=== PATIENT | female | born 1980 | race American Indian/Alaskan Native ===

== ENCOUNTER 2016-12-21 13:44 | Emergency (ER) | payer BC ==
[2016-12-21 14:53] LABS: BASO # 0.1 K/uL (0.0-0.2); BASO % 2.1 % (0.0-2.0); EOS # 0.1 K/uL (0.0-0.7); EOS % 1.9 % (0.0-4.0); HEMATOCRIT 35.9 % (34.0-47.0); LYMPH # 1.6 K/uL (1.0-4.3); LYMPH % 41.7 % (20.0-40.0); MEAN CELL VOLUME 86.2 fL (81.0-99.0); MEAN CORPUSCULAR HEMOGLOBIN 28.1 pg (27.0-31.0); MEAN CORPUSCULAR HGB CONC 32.6 g/dL (33.0-37.0); MONO # 0.4 K/uL (0.0-0.8); MONO % 10.1 % (0.0-10.0); NRBC % 0.1 % (0.0-2.0); RED CELL DISTRIBUTION WIDTH 13.2 % (11.5-14.5); WHITE BLOOD COUNT 3.8 K/uL (4.8-10.8)
[2016-12-21 15:02] LABS: CHLORIDE 98 mmol/L (98-107); SODIUM 137 mmol/L (132-148)
[2016-12-21 15:03] LABS: POTASSIUM 3.7 mmol/L (3.6-5.2)
[2016-12-21 15:05] LABS: ALB/GLOB RATIO 1.8 (1.0-2.1); ALKALINE PHOSPHATASE 56 U/L (38-126); ALT/SGPT 23 U/L (9-52); AST/SGOT 23 U/L (14-36); BILIRUBIN,TOTAL 0.6 mg/dL (0.2-1.3); BLOOD UREA NITROGEN 11 mg/dL (7-17); CARBON DIOXIDE 25 mmol/L (22-30); GFR AFRICAN-AMERICAN > 60; GLUCOSE,RANDOM 111 mg/dL (65-105); TOTAL PROTEIN 8.7 g/dL (6.3-8.3)
[2016-12-21 15:06] LABS: CALCIUM 9.2 mg/dl (8.6-10.4)
--- NOTE | 2016-12-21 16:00 | US ---
HISTORY: , bleeding. Beta HCG results: Pending COMPARISON: None available. TECHNIQUE: Transvaginal only. Real -time technique with 2D, duplex and color Doppler FINDINGS: UTERUS: Measures 5.1 x 9.1 cm. Normal in size and appearance. Location of fibroid(s) and size: Submucosal to the left of the midline adjacent to the endometrial echo complex 1.1 x 1.2 cm ENDOMETRIUM: Measures 13.1 mm in diameter. Thickened endometrium without focal abnormality. No evidence of gestational sac or other pathologic process. CERVIX: No cervical abnormality identified. RIGHT OVARY: Measures 1.6 x 2.6 cm. No solid mass. Normal flow. LEFT OVARY: Measures 1.6 x 3.2 cm. No solid mass. Normal flow. FREE FLUID: No significant free fluid noted. OTHER FINDINGS: None. IMPRESSION: No visible intrauterine gestation. Unremarkable adnexa. Endometrial hypertrophy. Incidental finding(s): Small submucosal uterine fibroid.
--- NOTE | 2016-12-21 16:10 | C.PDOC ---
Time Seen by Provider: 12/21/16 13:51 Chief Complaint (Nursing): Female Genitourinary Past Medical History Vital Signs: Last Vital Signs Temp 99.4 F 12/21/16 13:58 Pulse 86 12/21/16 13:58 Resp 20 12/21/16 13:58 BP 113/79 12/21/16 13:58 Pulse Ox 100 12/21/16 13:58 - Social History Hx Alcohol Use: No Hx Substance Use: No - Immunization History Hx Tetanus Toxoid Vaccination: No Hx Influenza Vaccination: Yes Hx Pneumococcal Vaccination: Yes ED Course And Treatment - Laboratory Results Result Diagrams: 12/21/16 14:46 12/21/16 14:46 O2 Sat by Pulse Oximetry: 100 Disposition - Disposition Disposition: HOME/ ROUTINE Disposition Time: 16:09 Condition: STABLE Additional Instructions: Your Beta HCG was 850 today. No was seen on ultrasound. Follow up with your OB /ER in 2-3 days for re-evaluation and repeat labs. Return to ER if symtpoms persist or worsen. Instructions: Spontaneous Miscarriage (ED) - Clinical Impression Clinical Impression: Spontaneous miscarriage
--- NOTE | 2016-12-21 16:18 | C.PDOC ---
History Of Present Illness 36 year old female, , 8 weeks , LMP 11/13/2016; presents to the ED with complaints of vaginal bleeding for one week that became heavier on Wednesday and Wednesday. Patient states she was evaluated by OBGYN on Wednesday for severe cramping, an ultrasound was performed and a heart beat was visualized. Patient notes bleeding has improved today and denies any nausea, vomiting, or other complaints at this time. (-) dysuria (-) urinary frequency Time Seen by Provider: 12/21/16 13:51 Chief Complaint (Nursing): Female Genitourinary History Per: Patient History/Exam Limitations: no limitations Onset/Duration Of Symptoms: Days Current Symptoms Are (Timing): Better Associated Symptoms: denies: Fever, Nausea, Vomiting, Diarrhea Recent travel outside of the [place]: No Abnormal Vaginal Bleeding: Yes Last Menstral Period: 11/13/2016 : 1 Para: 0 Miscarriage: 0 Past Medical History Reviewed: Historical Data, Nursing Documentation, Vital Signs Vital Signs: Last Vital Signs Temp 98 F 12/21/16 16:44 Pulse 66 12/21/16 16:44 Resp 18 12/21/16 16:44 BP 115/77 12/21/16 16:44 Pulse Ox 98 12/21/16 16:44 Family History: States: No Known Family Hx - Social History Hx Alcohol Use: No Hx Substance Use: No - Immunization History Hx Tetanus Toxoid Vaccination: No Hx Influenza Vaccination: Yes Hx Pneumococcal Vaccination: Yes Review Of Systems Constitutional: Negative for: Fever, Chills, Sweats Cardiovascular: Negative for: Chest Pain, Palpitations Respiratory: Negative for: Cough, Shortness of Breath Gastrointestinal: Negative for: Nausea, Vomiting, Abdominal Pain, Diarrhea, Constipation Genitourinary: Positive for: Vaginal Bleeding Neurological: Negative for: Headache, Dizziness Physical Exam - Physical Exam Appears: Non-toxic, No Acute Distress Skin: Warm, Dry Head: Atraumatic, Normacephalic Eye(s): bilateral: Normal Inspection, EOMI Nose: Normal Oral Mucosa: Moist Neck: Normal ROM, Supple Chest: Symmetrical, No Deformity Cardiovascular: Rhythm Regular Respiratory: Normal Breath Sounds, No Rales, No Rhonchi, No Stridor, No Wheezing Gastrointestinal/Abdominal: Soft, Tenderness (suprapubic tenderness), No Distention, No Guarding, No Rebound Extremity: Normal ROM, No Tenderness Neurological/Psych: Oriented x3 ED Course And Treatment - Laboratory Results Result Diagrams: 12/21/16 14:46 12/21/16 14:46 O2 Sat by Pulse Oximetry: 100 (room air ) - CT Scan/US Pelvis US Other Rad Studies (CT/US): Read By Radiologist, Radiology Report Reviewed CT/US Interpretation: Accession No. : [id number]. Patient Name / ID : RY Osorio / [id number]. Exam Date : 12/21/2016 14:29:48 ( Approved ). Study Comment : Sex / Age : F / 36Y. Creator : Shelton Rubin MD. Dictator : Shelton Rubin MD. Tactical Debriefer : Steam Room Attendant : Shelton Rubin MD. Approver2 : Report Date : 12/21/2016 15:58:31. My Comment : . HISTORY: , bleeding. Beta HCG results: Pending. COMPARISON: None available. TECHNIQUE: Transvaginal only. Real -time technique with 2D, duplex and color Doppler. FINDINGS: UTERUS: Measures 5.1 x 9.1 cm. Normal in size and appearance. Location of fibroid(s) and size: Submucosal to the left of the midline adjacent to the endometrial echo complex 1.1 x 1.2 cm. ENDOMETRIUM: Measures 13.1 mm in diameter. Thickened endometrium without focal abnormality. No evidence of gestational sac or other pathologic process. CERVIX: No cervical abnormality identified. RIGHT OVARY: Measures 1.6 x 2.6 cm. No solid mass. Normal flow. LEFT OVARY: Measures 1.6 x 3.2 cm. No solid mass. Normal flow. FREE FLUID: No significant free fluid noted. OTHER FINDINGS: None. IMPRESSION: No visible intrauterine gestation. Unremarkable adnexa. Endometrial hypertrophy. Incidental finding(s): Small submucosal uterine fibroid. Progress Note: Patient refused pain medicine. Discussed results ultrasound and lab work, was given a copy and instructed to follow up with OB/ER for re- evaluation 2-3 days for repeat evaluation. Disposition - Disposition Disposition: HOME/ ROUTINE Disposition Time: 16:09 Condition: STABLE Additional Instructions: Your Beta HCG was 850 today. No was seen on ultrasound. Follow up with your OB /ER in 2-3 days for re-evaluation and repeat labs. Return to ER if symtpoms persist or worsen. Instructions: Spontaneous Miscarriage (ED) Forms: Work/School/Gym Excuse - Clinical Impression Clinical Impression: Spontaneous miscarriage - Scribe Statement The provider has reviewed the documentation as recorded by the Scribe Sherrell Angel All medical record entries made by the Scribe were at my direction and personally dictated by me. I have reviewed the chart and agree that the record accurately reflects my personal performance of the history, physical exam, medical decision making, and the department course for this patient. I have also personally directed, reviewed, and agree with the discharge instructions and disposition.
[2016-12-21 16:26] LABS: RBC URINE 6 /hpf (0-3); URINE BACTERIA RARE (<OCC); URINE BILIRUBIN NEGATIVE (NEGATIVE); URINE COLOR Yellow (YELLOW); URINE GLUCOSE (UA) NORMAL (Normal); URINE KETONE TRACE mg/dL (NEGATIVE); URINE LEUKOCYTE ESTERASE NEG Leu/uL (Negative); URINE PROTEIN NEGATIVE (NEGATIVE); URINE UROBILINOGEN NORMAL mg/dL (0.2-1.0); WBC URINE 2 /hpf (0-5)
[2016-12-21 16:28] LABS: URINE BLOOD 2+ (NEGATIVE)
[2016-12-21 16:45] VITALS: BP 115/77; PULSE 66; RESP 18; TEMP 98
[2016-12-21 17:35] VITALS: O2SAT 100
== END 2016-12-21 16:48 | disposition home or self-care (01) ==
LOC: C.ER 13:44
DX: O03.9 Complete or unspecified spontaneous abortion without complication (principal)